=== PATIENT | female | born 1990 | race African-American/Black ===

== ENCOUNTER 2024-11-18 08:15 | Emergency (ER) | payer OTHER, SELFPAY ==
[2024-11-18 08:16] VITALS: BP 131/75; PULSE 76; RESP 16; TEMP 36.5; O2SAT 100; BMI 24.5
--- NOTE | 2024-11-18 08:35 | EX.ED.UPPERE ---
HPI History of Present Illness HPI Narrative: Patient presents with laceration to her right thumb that occurred today while she was at work. Patient states she accidentally cut it on the machine. Patient denies any paresthesias or weakness. Patient is unsure of her last tetanus. Patient is right-hand dominant. Patient describes her pain as dull. Patient states the bleeding stopped after several minutes of pressure. Patient applied gauze bandage. Patient denies any other injuries. Chief Complaint: Laceration Informant: patient Occured/Mechanism Comment: Cut on a machine Onset/Context/Timing Onset: Today Context: Sudden Onset Timing: Continuous Quality of Pain: Dull Location: Right thumb Worsened by: Nothing Relieved by: Nothing Associated Symptoms Associated Symptoms: Negative for Parasthesia, Weakness or Loss of Funtion Narrative Tetanus Immunization: Unknown PFSH [facility] Medical History no medical history no medical history Home Medications ?Medication ?Instructions ?Recorded ?Last Taken ?Type cephalexin 500 mg capsule 500 mg PO Q6 #40 CAPSULES 11/18/24 Unknown Rx Allergy/AdvReac Type Severity Reaction Status Date / Time No Known Allergies Allergy Verified 11/18/24 08:16 Surgical History no surgical history no surgical history Social History Smoking Status: Never smoker ROS ROS ED Constitutional Constitutional ED: Denies chills or fever(s) Eyes Eyes: Denies blurry vision or change in vision ENT ENT ED: Denies rhinorrhea or sore throat Cardiovascular Cardiovascular: Denies chest pain or palpitations Respiratory/Chest Respiratory/Chest: Denies cough or dyspnea Gastrointestinal Gastrointestinal: Denies nausea or vomiting Genitourinary Genitourinary ED: Denies dysuria or hematuria Musculoskeletal Musculoskeletal: Denies back pain or neck pain Integumentary Denies abscess or rash Neurologic Neurologic: Denies headache(s) or weakness Allergic/Immunologic Allergic/Immunologic ED: Denies mouth swelling or urticaria EXAM Physical Exam Const Vital Signs: 11/18/24 08:16 Temperature 97.7 F L Temperature Source Temporal Pulse Rate 76 Respiratory Rate 16 Blood Pressure 131/75 H Blood Pressure Mean 93 Pulse Ox 100 Positive well nourished and well developed General Appearance ED: well developed and NAD HEENT Reports moist mucous membranes Neck full ROM and supple Extremity Extremity Narrative: There is a 2.5 cm full-thickness linear laceration of the tip of the distal phalanx of the right thumb. There is mild bleeding noted. There are no foreign bodies noted. There is mild gapping of the wound margins. Sensation was intact to light touch in all digits. Capillary refill is less than 2 seconds in all digits. There is full range of motion of the IP and MP joints. Neuro oriented x3, CN's II-XII intact bilaterally, moves all extremities, no focal motor deficits and no sensory deficits noted Sensorium / Orientation: alert Motor Exam: strength 5/5 throughout Psych mental status grossly normal Skin Trauma: laceration linear, motor nerve function intact and sensation intact MDM MDM MDM Narrative Medical decision making narrative: Patient was advised of the need for laceration repair. Patient was given a tetanus booster. The wound was cleaned and irrigated with copious amounts of normal saline. The wound was anesthetized with 1% plain lidocaine via digital block. The wound was closed with 4 simple interrupted #4-0 nylon sutures under sterile technique. Patient tolerated the procedure well. Bacitracin dressing was applied. Patient was given a dose of Keflex here. Patient was given a prescription for Keflex. Patient was instructed to follow-up with her primary care physician or the [facility] in 7 days for wound recheck and suture removal. Patient understood and was agreeable with the plan. All questions were answered. Procedures Lacerations Right thumb: Length: 2.5 cm Depth: Sub Q Shape: Linear Prep: Sterile Conditions and Chlorhexadine Laceration repair: Digital block, Irrigated, Lidocaine, Skin sutures and Wound explored Irrigated (ml): 60 Number of Sutures/Wilbur: 4 Suture Information: Ethilon, Simple and 4-0 Discharge Plan Triage Chief Complaint: Laceration ED Provider: Walt Antonio Dx/Rx/DC Orders Clinical Impression: Laceration of right thumb without foreign body without damage to nail Instructions: ED Hand Laceration- All Closures, ED Laceration Minimize Scars Prescriptions: New cephalexin 500 mg capsule 500 mg PO Q6 Qty: 40 0RF Stand Alone Forms: Work Status Form Primary Care Provider: Care Physician,No Primary Referrals: Care Physician,No Primary [Primary Care Provider, Medical] [facility] [Non-Staff, None] - 7 Days for suture removal Print Language: Scottish Disposition Disposition: Home, Self Care
[2024-11-18] MEDS: Lidocaine 1% (20 ml mdv) 20 ML Vial INFILT (09:28)
[2024-11-18 10:30] VITALS: BP 118/70; PULSE 60; RESP 18; TEMP 36.8; O2SAT 100
== END 2024-11-18 10:35 | disposition home or self-care (01) ==
PROVIDERS: Emergency Provider Emergency Medicine; Visit Provider Emergency Medicine
DX: S61.011A Laceration without foreign body of right thumb without damage to nail, initial encounter (principal); Z23 Encounter for immunization; X58.XXXA Exposure to other specified factors, initial encounter
CPT/HCPCS: 12001; 90471; 90715; 99283